=== PATIENT | male | born 1940 | race Caucasian/White ===

== ENCOUNTER 2021-10-14 07:27 | Outpatient (CLI) | payer MEDICARE ==
[~2021-10-14] VITALS: Ht 177.8 cm; Wt 80.8 kg
[2021-10-14] VITALS (7 sets, daily range): BP systolic 135–166; BP diastolic 70–91; PULSE 56–67; TEMP 98.3
[2021-10-14] MEDS ORDERED: ASPIRIN E.C. 8181 MG PO (08:08)
[2021-10-14] MEDS ORDERED: LIPITOR20 MG PO (08:08)
[2021-10-14] MEDS ORDERED: FLONASEALLERGY NS (08:10)
[2021-10-14] MEDS ORDERED: CENTRUM CHEWAB1 EAC4 PO (08:11)
[2021-10-14] MEDS ORDERED: TUSSIN CF PO (08:11)
[2021-10-14 08:12] LABS: HEMATOCRIT 41.1 % (42.0-52.0); HEMOGLOBIN 13.4 g/dl (13.5-18.0); MEAN CELL VOLUME 91 fl (80.0-100.0); MEAN CORPUSCULAR HEMOGLOBIN 30 pg (27-31); MEAN CORPUSCULAR HGB CONC 33 g/dl (33.0-37.0); MEAN PLATELET VOLUME 10.6 fl (7.4-10.4); PLATELET COUNT 199 K/mm3 (130-400); REDCELL DISTRIBUTION WIDTH-CV 13.5 % (11.5-14.5)
[2021-10-14 08:20] LABS: PROTHROMBIN TIME 11.4 SECONDS (9.7-12.8)
[2021-10-14 08:22] LABS: PARTIAL THROMBOPLASTIN TIME 30.8 SECONDS (26.0-37.0)
[2021-10-14 08:30] LABS: ALBUMIN 3.9 gm/dL (3.4-4.8); BILIRUBIN,TOTAL 0.5 mg/dL (0.2-1.2); CALCIUM 9.2 mg/dL (8.4-10.2); CREATININE, serum 1.26 mg/dL (0.72-1.25); MAGNESIUM 2.2 mg/dL (1.6-2.6); POTASSIUM 4.3 mmol/L (3.5-4.5); TOTAL PROTEIN 6.7 gm/dL (6.2-8.1)
[2021-10-14] MEDS ORDERED: COREG 3.123.125 MG/T PO (09:12)
[2021-10-14] MEDS ORDERED: ZESTRIL 5MG5 MG PO (09:13)
--- NOTE | 2021-10-14 11:20 | NUR ---
DC instructions reviewed with pt and daughter, both express understanding. Pt is steady on feet in room and walking to restroom. He has tolerated PO fluids with no difficulty swallowing. He does report some slight irritation to throat and is asked to advance diet slowly and notify cardiology office if this is not improving by tomorrow. He expresses understanding. INT DC'd with catheter intact. He is assisted out to daughter's car by wheelchair.
== END 2021-10-14 11:20 | disposition home or self-care (01) ==
LOC: COL.RAD 07:27
PROVIDERS: Internal Medicine Adult Congenital Heart Disease
DX: I35.0 Nonrheumatic aortic (valve) stenosis (principal); I48.0 Paroxysmal atrial fibrillation; R00.1 Bradycardia, unspecified; Z20.822 Contact with and (suspected) exposure to COVID-19
CPT/HCPCS: J2704; J7030

== ENCOUNTER 2021-10-19 06:37 | Emergency (ER) | payer MEDICARE ==
[~2021-10-19] VITALS: Ht 180.3 cm; Wt 81.8 kg
[~2021-10-19 06:37] MED LIST: ASPIRIN E.C. 8181 MG PO; CENTRUM CHEWAB1 EAC4 PO; COREG 3.123.125 MG/T PO; FLONASEALLERGY NS; LIPITOR20 MG PO; TUSSIN CF PO; ZESTRIL 5MG5 MG PO
[2021-10-19 06:42] VITALS: TEMP 97.8
[2021-10-19 06:51] LABS: BASO # 0.1 K/mm3 (0.0-0.2); EOS # 0.3 K/mm3 (0.0-0.7); EOS % 4.5 % (0.0-4.0); GRAN % 71.4 % (42.2-75.2); HEMATOCRIT 38.8 % (42.0-52.0); HEMOGLOBIN 13.1 g/dl (13.5-18.0); LYMPH # 1.2 K/mm3 (1.2-3.4); LYMPH % 16.3 % (20.0-51.0); MEAN CELL VOLUME 90 fl (80.0-100.0); MEAN CORPUSCULAR HEMOGLOBIN 31 pg (27-31); MEAN CORPUSCULAR HGB CONC 34 g/dl (33.0-37.0); MEAN PLATELET VOLUME 10.3 fl (7.4-10.4); MONO # 0.5 K/mm3 (0.1-0.6); MONO % 6.5 % (1.7-9.3); PLATELET COUNT 190 K/mm3 (130-400); REDCELL DISTRIBUTION WIDTH-CV 13.5 % (11.5-14.5)
[2021-10-19 07:12] LABS: ALBUMIN 3.6 gm/dL (3.4-4.8); CALCIUM 9.2 mg/dL (8.4-10.2); CREATININE, serum 1.37 mg/dL (0.72-1.25); POTASSIUM 4.2 mmol/L (3.5-4.5); TOTAL PROTEIN 6.3 gm/dL (6.2-8.1)
[2021-10-19 07:29] LABS: BILIRUBIN,TOTAL 0.3 mg/dL (0.2-1.2)
[2021-10-19 08:45] VITALS: BP 128/61; PULSE 80
== END 2021-10-19 08:50 | disposition home or self-care, planned readmission (81) ==
LOC: COL.ER 06:37
PROVIDERS: Personal Emergency Response Attendant
DX: R56.9 Unspecified convulsions (principal); I25.10 Atherosclerotic heart disease of native coronary artery without angina pectoris; Z79.82 Long term (current) use of aspirin

== ENCOUNTER 2021-11-06 05:01 | Emergency (ER) | payer MEDICARE ==
[~2021-11-06] VITALS: Ht 180.3 cm; Wt 81.8 kg
[2021-11-06 05:04] VITALS: TEMP 98.1
[2021-11-06 05:26] LABS: BASO # 0.1 K/mm3 (0.0-0.2); BASO % 0.9 % (0.0-2.0); EOS # 0.3 K/mm3 (0.0-0.7); EOS % 3.6 % (0.0-4.0); GRAN # 4.9 K/mm3 (1.4-6.5); GRAN % 70.8 % (42.2-75.2); HEMATOCRIT 39.7 % (42.0-52.0); HEMOGLOBIN 13.1 g/dl (13.5-18.0); LYMPH # 1.2 K/mm3 (1.2-3.4); LYMPH % 16.9 % (20.0-51.0); MEAN CELL VOLUME 91 fl (80.0-100.0); MEAN CORPUSCULAR HEMOGLOBIN 30 pg (27-31); MEAN CORPUSCULAR HGB CONC 33 g/dl (33.0-37.0); MEAN PLATELET VOLUME 10.6 fl (7.4-10.4); MONO # 0.5 K/mm3 (0.1-0.6); MONO % 7.5 % (1.7-9.3); PLATELET COUNT 190 K/mm3 (130-400); RED BLOOD COUNT 4.35 M/mm3 (4.20-5.60); REDCELL DISTRIBUTION WIDTH-CV 13.6 % (11.5-14.5)
[2021-11-06 05:53] LABS: ALBUMIN 3.8 gm/dL (3.4-4.8); BILIRUBIN,TOTAL 0.4 mg/dL (0.2-1.2); CREATININE, serum 1.46 mg/dL (0.72-1.25); POTASSIUM 4.3 mmol/L (3.5-4.5); TOTAL PROTEIN 6.6 gm/dL (6.2-8.1)
[2021-11-06 13:54] VITALS: BP 102/59; PULSE 58
== END 2021-11-06 14:10 | disposition short-term general hospital (02) ==
LOC: COL.ER 05:01
PROVIDERS: Personal Emergency Response Attendant
DX: R56.9 Unspecified convulsions (principal); I25.10 Atherosclerotic heart disease of native coronary artery without angina pectoris; Z20.822 Contact with and (suspected) exposure to COVID-19; Z79.82 Long term (current) use of aspirin
CPT/HCPCS: J1953; J2060

== ENCOUNTER 2022-02-03 12:36 | Day surgery (SDC) | payer MEDICARE ==
[~2022-02-03] VITALS: Ht 180.3 cm; Wt 78.5 kg
[2022-02-03] MEDS ORDERED: KEPPRA750 MG (13:03)
[2022-02-03 13:08] VITALS: BP 125/71; PULSE 58; TEMP 97.5
[2022-02-03 13:50] VITALS: BP 78/54; PULSE 63; TEMP 97.2
--- NOTE | 2022-02-03 13:50 | NUR ---
pt to [facility] via cart from endo room, walked to chair, family in room. call light in reach, takes juice. no c/o
[2022-02-03 14:05] VITALS: BP 90/55; PULSE 57
--- NOTE | 2022-02-03 14:05 | NUR ---
DR ANDRADE SEE PT AND FAMILY. NO C/O
[2022-02-03 14:20] VITALS: BP 116/56; PULSE 58
--- NOTE | 2022-02-03 14:20 | NUR ---
IV D'CD INTACT, REVIEWED DISCHARGE INST. ON DIET, PRECAUTIONS AND FOLLOWUP WITH VERBAL UNDERSTANDING. UP IN ROOM DRESSED, NO C/O, DISCHARGED AT 1240 VIA W/C WITH FAMILY TO CAR
== END 2022-02-03 14:47 | disposition home or self-care (01) ==
LOC: SDCO 12:36
DX: K22.2 Esophageal obstruction (principal); K44.9 Diaphragmatic hernia without obstruction or gangrene; Z79.82 Long term (current) use of aspirin; Z79.899 Other long term (current) drug therapy; Z87.891 Personal history of nicotine dependence; I25.10 Atherosclerotic heart disease of native coronary artery without angina pectoris
CPT/HCPCS: C1726; J0330; J2370; J2704; J7120

== ENCOUNTER 2022-03-15 08:59 | Outpatient (CLI) | payer MEDICARE ==
[2022-03-15] VITALS (7 sets, daily range): BP systolic 112–136; BP diastolic 58–80; PULSE 49–54; TEMP 97.5
[~2022-03-15 08:59] MED LIST changes: +KEPPRA750 MG PO
[2022-03-15 10:22] LABS: HEMOGLOBIN 12.3 g/dl (13.5-18.0); MEAN CELL VOLUME 91 fl (80.0-100.0); MEAN CORPUSCULAR HEMOGLOBIN 30 pg (27-31); MEAN CORPUSCULAR HGB CONC 33 g/dl (33.0-37.0); MEAN PLATELET VOLUME 10.6 fl (7.4-10.4); PLATELET COUNT 181 K/mm3 (130-400); RED BLOOD COUNT 4.04 M/mm3 (4.20-5.60); REDCELL DISTRIBUTION WIDTH-CV 13.6 % (11.5-14.5)
[2022-03-15 10:25] LABS: HEMATOCRIT 36.9 % (42.0-52.0)
[2022-03-15 10:38] LABS: PROTHROMBIN TIME 11.7 SECONDS (9.7-12.8)
[2022-03-15 10:41] LABS: PARTIAL THROMBOPLASTIN TIME 32.5 SECONDS (26.0-37.0)
[2022-03-15 10:50] LABS: CALCIUM 9.3 mg/dL (8.4-10.2); CREATININE, serum 1.32 mg/dL (0.72-1.25); POTASSIUM 4.8 mmol/L (3.5-4.5)
--- NOTE | 2022-03-15 12:50 | NUR ---
Discharge instructions given to pt.pt verbalizes understanding.Pt escorted out via wheelchair by this nurse.
== END 2022-03-15 14:44 ==
LOC: COL.RAD 08:59
PROVIDERS: Internal Medicine Cardiovascular Disease
DX: I35.9 Nonrheumatic aortic valve disorder, unspecified (principal); I51.7 Cardiomegaly; I44.30 Unspecified atrioventricular block
CPT/HCPCS: J2704; J7120

== ENCOUNTER → 2022-11-04 | Outpatient (REF) ==
[~2022-11-04] MED LIST changes: +CEPHALEXIN500 M1 PO; +PLAVIX 75MG TAB75 MG PO; +TYLENOL 8 HR PO
== END ==
LOC: COL.CARD 12:55
DX: R07.9 Chest pain, unspecified (principal)

== ENCOUNTER → 2023-10-31 | Outpatient (CLI) | payer MEDICARE | LOC: COL.RAD 11:16 | DX: R22.41 Localized swelling, mass and lump, right lower limb (principal) ==